=== PATIENT | female | born 1985 | race Caucasian/White ===

== ENCOUNTER 2017-04-04 13:25 | Emergency (ER) | payer BC, OTHER ==
[2017-04-04 15:02] VITALS: BP 135/78
--- NOTE | 2017-04-04 15:31 | UC ---
Abdominal Pain Female HPI - HPI Summary HPI Summary: Pt c/o sudden onset of abdominal discomfort and frequent soft stools. Pt reports that she traveled over the weekend ate "breakfast that did not taste good" and began with generalized abdominal discomfort, decreased appetite and frequent up to 7 X's per day , soft stools that have ranged in color from green to black. Pt denies nausea or vomiting, fever, chills or history of GI disease - History of Current Complaint Chief Complaint: UCGI Stated Complaint: STOMACH ACHE Time Seen by Provider: 04/04/17 15:14 Hx Obtained From: Patient Hx Last Menstrual Period: 03/22/17 ?: No Onset/Duration: Sudden Onset, Lasting Days, Still Present Timing: Constant Severity Initially: Mild Severity Currently: Mild Location: Diffuse, Discrete At: LUQ Radiates: No Character: Burning, Colicy, Dull, Sharp Aggravating Factor(s): Food, Movement Alleviating Factor(s): NPO Associated Signs and Symptoms: Positive: Decreased Appetite, Other: - frequent soft stools - Risk Factors Ectopic Risk Factor: Negative Ovarian Torsion Risk Factor: Negative Allergies/Adverse Reactions: Allergies Allergy/AdvReac Type Severity Reaction Status Date / Time No Known Allergies Allergy Verified 04/04/17 15:02 Home Medications: Home Medications Rizatriptan (NF) [Maxalt-Etl Architect (NF)] 5 mg PO DAILY 04/04/17 [History Confirmed ] Topiramate [Topamax 100 mg tab] 50 mg PO BID 04/04/17 [History Confirmed ] PMH/Surg Hx/FS Hx/Imm Hx Previously Healthy: Yes - Surgical History Surgical History: Yes Surgery Procedure, Year, and Place: Sinus surgery, left foot surgery - Family History Known Family History: Positive: None Negative: Cardiac Disease, Hypertension - Social History Occupation: Employed Full-time Lives: With Family Alcohol Use: None Substance Use Type: None Smoking Status (MU): Former Smoker Type: Cigarettes Amount Used/How Often: 1/2 PPD Length of Time of Smoking/Using Tobacco: 12 Years Have You Smoked in the Last Year: No When Did the Patient Quit Smoking/Using Tobacco: quit 01/2015 Household Exposure Type: Cigarettes - Immunization History Most Recent Influenza Vaccination: Not the Season Vaccination Up to Date: No Review of Systems Constitutional: Fatigue Skin: Negative Eyes: Negative ENT: Negative Respiratory: Negative Cardiovascular: Negative Gastrointestinal: Abdominal Pain, Other - frequent soft stools Genitourinary: Negative Motor: Negative Neurovascular: Negative Musculoskeletal: Negative Neurological: Negative Psychological: Negative Is Patient Immunocompromised?: No All Other Systems Reviewed And Are Negative: Yes Physical Exam Triage Information Reviewed: Yes Appearance: Ill-Appearing Vital Signs: Initial Vital Signs Temp 98.5 F 04/04/17 14:57 Pulse 76 04/04/17 14:57 Resp 16 04/04/17 14:57 BP 135/78 04/04/17 14:57 Pulse Ox 98 04/04/17 14:57 Vital Signs Reviewed: Yes Eye Exam: Normal ENT Exam: Normal Dental Exam: Normal Neck exam: Normal Respiratory Exam: Normal Cardiovascular Exam: Normal Abdominal Exam: Other Abdomen Description: Positive: Other: - tenderness LUQ, and epigastric Bowel Sounds: Positive: Present Musculoskeletal Exam: Normal Neurological Exam: Normal Psychological Exam: Normal Skin Exam: Normal Abd Pain Female Course/Dx - Course Course Of Treatment: I discussed with the pt the need to f/u with PCP - Differential Dx/Diagnosis Differential Diagnosis: Diverticulitis, Gall Bladder Disease, Irritable Bowel Syndrome Provider Diagnoses: abdominal pain. IBS? gastroenteritis? Diverticulitis? Food poisoning? Discharge - Discharge Plan Condition: Stable Disposition: HOME Patient Education Materials: Gas and Bloating (ED), Abdominal Pain (ED) Referrals: Dell MAYNARD,Antony Benjamin [Primary Care Provider] - If Needed Additional Instructions: Please follow up with your PCP as needed. Please use OTC immodium to manage your symptoms of loose frequent stools and follow the directions provided by the pharmacy technician inpatient. If symptoms do not improve please seek medical attention as soon as possible.
== END 2017-04-04 15:40 | disposition home or self-care (01) ==
LOC: UCCORT 13:25
DX: R10.9 Unspecified abdominal pain (principal); Z87.891 Personal history of nicotine dependence
CPT/HCPCS: 99211; G0463

== ENCOUNTER 2017-06-09 10:00 | Emergency (ER) | payer BC, OTHER ==
[2017-06-09 11:40] VITALS: BP 112/74
--- NOTE | 2017-06-09 12:20 | UC ---
Ear Complaint HPI - HPI Summary HPI Summary: 32 y/o female presents to the urgent care c/o RT ear pain and SRINIVASAN for the past 4 days. Pt reports she has Hx of Migraine SRINIVASAN and a herniated disc at C5-C6 that is been Tx by Neurologist DR Jayesh Bryson at [place]. She takes Topiramate and Rizotriptan and Tylenol for Migraines w/o any improvement of symptoms. SRINIVASAN is also on the Rt side of temporal and frontal area. Pain is 7/10 radiating to the cheek and neck. She also has a painful lymphnode in the RT side of neck. Pt had chills w/ nausea yesterday , but unaware of fever. Pt states she has a cold about 1 week ago and she still w/ mild runny nose and +PND. Pt denies dizziness , aura, decrease hearing, SOB, cough, chest pain abdominal pain, V/D - History of Current Complaint Chief Complaint: UCHeadache Stated Complaint: SRINIVASAN,EARS Time Seen by Provider: 06/09/17 12:01 Hx Obtained From: Patient Hx Last Menstrual Period: 03/22/17 Onset/Duration: Gradual Onset, Lasting Days - 4 days, Still Present, Worse Since - today Severity Initially: Mild Severity Currently: Moderate Pain Intensity: 7 Pain Scale Used: 0-10 Numeric Aggravating Factors: Other - Headache Alleviating Factors: OTC Meds Associated Signs/Symptoms: Positive: URI Symptoms. Negative: Hearing Loss, Foreign Body Sensation, Trauma to Ear, Swelling @ - Allergies/Home Medications Allergies/Adverse Reactions: Allergies Allergy/AdvReac Type Severity Reaction Status Date / Time No Known Allergies Allergy Verified 06/09/17 11:38 Home Medications: Home Medications Topiramate [Trokendi Xr] 100 mg PO DAILY 06/09/17 [History Confirmed 06/09/17] PMH/Surg Hx/FS Hx/Imm Hx Previously Healthy: Yes Neurological History: Migraine Other Neurological History: Herniated disc at C5-C6 - Surgical History Surgical History: Yes Surgery Procedure, Year, and Place: Sinus surgery, left foot surgery - Family History Known Family History: Positive: None - Pt denies FMHX Negative: Cardiac Disease, Hypertension - Social History Occupation: Employed Full-time Lives: With Family Alcohol Use: None Substance Use Type: None Smoking Status (MU): Former Smoker Type: Cigarettes Amount Used/How Often: 1/2 PPD Length of Time of Smoking/Using Tobacco: 12 Years Have You Smoked in the Last Year: No When Did the Patient Quit Smoking/Using Tobacco: quit 01/2015 Household Exposure Type: Cigarettes - Immunization History Most Recent Influenza Vaccination: Not the Season Vaccination Up to Date: No Review of Systems Constitutional: Negative Skin: Negative Eyes: Negative ENT: Ear Ache - Rt ear pain, Nasal Discharge - mild clear, Sinus Congestion Cardiovascular: Negative Gastrointestinal: Nausea Genitourinary: Negative Motor: Negative Neurovascular: Negative Musculoskeletal: Negative Neurological: Headache Psychological: Negative Is Patient Immunocompromised?: No All Other Systems Reviewed And Are Negative: Yes Physical Exam Triage Information Reviewed: Yes Vital Signs: Initial Vital Signs Temp 98.1 F 06/09/17 11:31 Pulse 79 06/09/17 11:31 Resp 14 06/09/17 11:31 BP 112/74 06/09/17 11:31 Pulse Ox 100 06/09/17 11:31 - Additional Comments Vital Signs Reviewed: Yes General: well developed, well nourished female sitting in the examining w/o any apparent distress. Eyes: Positive: Conjunctiva Clear - -Eyes: sclera and conjunctiva clear, corneas grossly clear, PEERLA, EOMI, no nystagmus, no ptosis,no photophobia, normal fundoscopic exam, normal visual barrera,, Other: - -Head:scalp atraumatic , NT, no trigger points ENT: Positive: Normal ENT inspection, Hearing grossly normal, Pharynx normal, RT external ear canals clear, RT TM injected w/ erythema and mild purulent discharge, LF external ear canal clear, LF TM WNL. No TMJ tenderness. Mild Nasal congestion, Nasal drainage clear, +PND, No Tonsillar enlargement or exudate Dental Exam: Normal Neck: Positive: Supple, Nontender, RT anterior cervical lymphadenopathy enalerge and tender on palpation Respiratory: Positive: Chest non-tender, Lungs clear, Normal breath sounds, No respiratory distress Cardiovascular: Positive: RRR, No Murmur, Pulses Normal, Brisk Capillary Refill Abdomen Description: Positive: Nontender, No Organomegaly, Soft. Negative: CVA Tenderness (R), CVA Tenderness (L) Bowel Sounds: Positive: Present Musculoskeletal: Positive: Strength Intact, ROM Intact, No Edema Neurological: Positive: Alert - A&OX3, CNII-XII WNL, speech, memory and expression WNL,, Muscle Tone Normal - Muscle strength 5/5 in both upper and lower extremities. Normal gait, negative Romberg test and good coordination finger to nose, heel to gilmore WNL, sensation intact. Reflexes WNL Psychological Exam: Normal Skin: Positive: warm and dry , no rashes or petechiae observed Ear Complaint Course/Dx - Course Course Of Treatment: 32 y/o female presents to the urgent care c/o RT ear pain and SRINIVASAN for the past 4 days. Pt reports she has Hx of Migraine SRINIVASAN and a herniated disc at C5-C6 that is been Tx by Neurologist DR Jayesh Bryson at [facility]. She takes Topiramate and Rizotriptan and Tylenol for Migraines w/o any improvement of symptoms. SRINIVASAN is also on the Rt side of temporal and frontal area. Pain is 7/10 radiating to the cheek and neck. She also has a painful lymphnode in the RT side of neck. Pt had chills w/ nausea yesterday , but unaware of fever. Pt states she has a cold about 1 week ago and she still w/ mild runny nose and +PND. Pt denies dizziness, aura, decrease hearing, SOB, cough, chest pain abdominal pain, V/D. Hx obtained. Pt w/ RT otitis Media on examination. Pt requested a RX fluconazole sicne every time she takes ABx she gets a yeast infectio. Pt Rx Amoxicillin PO, Naproxen PO, Zofran PO ans Fluconazole to alleviate symptoms. Strongly advised to f/u with her Neurologist for further management w/ her Migraine SRINIVASAN. Pt explained D/C instructions. Pt understood and agreed w/ plan of care. - Differential Dx/Diagnosis Differential Diagnosis/HQI/PQRI: Cerumen Impaction, Mastoiditis, Otitis Externa , Otitis Media, Pharyngitis, TMJ Syndrome, Trigeminal Nueralgia, Other - Migraine SRINIVASAN Provider Diagnoses: 1- RT otitis media. 2-Headache. 3-Nausea Discharge - Discharge Plan Condition: Stable Disposition: HOME Prescriptions: Amoxicillin PO (*) [Amoxicillin 500 MG CAP*] 500 mg PO Q12H #10 cap Fluconazole [Fluconazole 150 mg tab] 150 mg PO ONCE #1 tablet Naproxen [Naproxen 500 mg] 500 mg PO Q8H PRN #30 tab PRN Reason: Headache Ondansetron ODT TAB* [Zofran 4 MG Odt TAB*] 4 mg PO Q6H PRN #12 tab.odt PRN Reason: Nausea Patient Education Materials: Ear Infection (ED), Acute Headache (ED) Forms: *Work Release Referrals: [facility] [place] [facility] [Outside] - 3 Days Additional Instructions: 1- Please take the full course of the antibiotic to avoid resistance. 2-Please take Naproxen PO as instructed after meals to alleviate otalgia and SRINIVASAN. Increase fluid intake, eat well, rest and avoid strenuous exercise 3-Take Zofran Po as directed only if you continue w/ the nausea or you develop vomiting. If you develop a yeast infection at the end of amoxicillin treatment please take the Fluconazole as directed. Do not take the Zofran PO due to interaction 4-If symptoms do not improve or worsen please return to the urgent care or f/u with your PCP for further evaluation and treatment.
== END 2017-06-09 12:30 | disposition home or self-care (01) ==
LOC: UCCORT 10:00
DX: Z87.891 Personal history of nicotine dependence (principal); H66.91 Otitis media, unspecified, right ear; R51 Headache; R11.0 Nausea
CPT/HCPCS: 99212; G0463

== ENCOUNTER 2017-10-16 07:01 | Emergency (ER) | payer BC ==
[2017-10-16 07:19] VITALS: BP 123/78
--- NOTE | 2017-10-16 08:01 | UC ---
Throat Pain/Nasal Eric HPI - HPI Summary HPI Summary: Sinus pain and pressure x 7 days bilateral ear pain, nasal congestion , pnd, no cough , no fever, no chills - History of Current Complaint Chief Complaint: UCGeneralIllness Stated Complaint: BILATERAL EAR/MOUTH COMPLAINT Time Seen by Provider: 10/16/17 07:24 Hx Obtained From: Patient Hx Last Menstrual Period: Nuvaring at all times ?: No Onset/Duration: Gradual Onset, Lasting Days - 7, Still Present Severity: Moderate Pain Intensity: 4 Pain Scale Used: 0-10 Numeric Cough: None Associated Signs & Symptoms: Positive: Sinus Discomfort, Nasal Discharge. Negative: Dysphagia, FB Sensation, Drooling, Wheezing, Hoarseness, Fever, Vomiting, Rash - Allergies/Home Medications Allergies/Adverse Reactions: Allergies Allergy/AdvReac Type Severity Reaction Status Date / Time No Known Allergies Allergy Verified 10/16/17 07:19 PMH/Surg Hx/FS Hx/Imm Hx Previously Healthy: Yes - Surgical History Surgical History: Yes Surgery Procedure, Year, and Place: Sinus surgery, left foot surgery - Family History Known Family History: Positive: None - Pt denies FMHX Negative: Cardiac Disease, Hypertension - Social History Alcohol Use: None Substance Use Type: None Smoking Status (MU): Former Smoker Type: Cigarettes Amount Used/How Often: 1/2 PPD Length of Time of Smoking/Using Tobacco: 12 Years Have You Smoked in the Last Year: No When Did the Patient Quit Smoking/Using Tobacco: quit 01/2015 Household Exposure Type: Cigarettes - Immunization History Most Recent Influenza Vaccination: Not the Season Vaccination Up to Date: No Review of Systems Constitutional: Negative Skin: Negative Eyes: Negative ENT: Ear Ache, Nasal Discharge, Sinus Congestion, Sinus Pain/Tenderness Respiratory: Negative Cardiovascular: Negative Gastrointestinal: Negative Is Patient Immunocompromised?: No All Other Systems Reviewed And Are Negative: Yes Physical Exam Triage Information Reviewed: Yes Appearance: Well-Appearing, No Pain Distress, Well-Nourished Vital Signs: Initial Vital Signs Temp 97.6 F 10/16/17 07:12 Pulse 80 10/16/17 07:12 Resp 16 10/16/17 07:12 BP 123/78 10/16/17 07:12 Pulse Ox 100 10/16/17 07:12 Vital Signs Reviewed: Yes Eye Exam: Normal Eyes: Positive: Conjunctiva Clear ENT: Positive: Normal ENT inspection, Hearing grossly normal, Pharyngeal erythema, Nasal drainage, TMs normal, TM bulging, Sinus tenderness. Negative: TM dull, TM red, Tonsillar swelling, Tonsillar exudate Neck: Positive: Supple, Nontender, No Lymphadenopathy Respiratory: Positive: Chest non-tender, Lungs clear, Normal breath sounds Cardiovascular: Positive: RRR, No Murmur, Pulses Normal Skin Exam: Normal Throat Pain/Nasal Course/Dx - Differential Dx/Diagnosis Provider Diagnoses: Sinusitis Discharge - Sign-Out/Discharge Documenting (check all that apply): Discharge/Admit/Transfer - Discharge Plan Condition: Stable Disposition: HOME Prescriptions: Amoxicillin/Clavulanate TAB* [Augmentin TAB 875*] 875 mg PO BID #20 tab Fluconazole [Diflucan 150 MG (NF)] 150 mg PO ONCE #1 tab Patient Education Materials: Sinusitis (ED) Referrals: Antony Gray [Primary Care Provider] - If Needed - Billing Disposition and Condition Condition: STABLE Disposition: Home
== END 2017-10-16 07:33 | disposition home or self-care (01) ==
LOC: UCCORT 07:01
DX: J32.9 Chronic sinusitis, unspecified (principal); Z87.891 Personal history of nicotine dependence
CPT/HCPCS: 99212; G0463

== ENCOUNTER 2018-05-25 14:09 | Emergency (ER) | payer BC ==
[2018-05-25 14:54] VITALS: BP 109/74
--- NOTE | 2018-05-25 15:01 | UC ---
Throat Pain/Nasal Eric HPI - HPI Summary HPI Summary: Pt presents with c/o sudden onset of nasal congestion chills body aches x 6 days. Pt states that she think she has a sinus infection. - History of Current Complaint Chief Complaint: UCRespiratory Stated Complaint: ST,SINUS COMPLAINT Time Seen by Provider: 05/25/18 14:51 Hx Obtained From: Patient Hx Last Menstrual Period: Nuvaring at all times ?: No Onset/Duration: Sudden Onset, Lasting Days, Still Present Severity: Moderate Pain Intensity: 5 Cough: None Associated Signs & Symptoms: Positive: Sinus Discomfort - Epiglottits Risk Factors Epiglottis Risk Factors: Negative - Allergies/Home Medications Allergies/Adverse Reactions: Allergies Allergy/AdvReac Type Severity Reaction Status Date / Time No Known Allergies Allergy Verified 05/25/18 14:49 Home Medications: Home Medications Guaifenesin/Dextromethorphan [Mucinex Dm ER 1,200-60 mg Tab] 1 tab PO Q12H PRN 05/25/18 [History Confirmed 05/25/18] Rizatriptan ODT (NF) [Maxalt-CAFETERIA TABLE ATTENDANT (NF)] 10 mg PO SEE INSTRUCTIONS PRN 05/25/18 [ History Confirmed 05/25/18] Topiramate TAB(*) [Topamax 100 mg tab] 200 mg PO BEDTIME 05/25/18 [History Confirmed 05/25/18] Zolpidem CR (NF) [Ambien CR (NF)] 12.5 mg PO BEDTIME 05/25/18 [History Confirmed 05/25/18] diPHENhydraMINE PO* [Benadryl PO 25 MG TAB*] 50 mg PO Q6H PRN 05/25/18 [History Confirmed 05/25/18] PMH/Surg Hx/FS Hx/Imm Hx Previously Healthy: Yes - Surgical History Surgical History: Yes Surgery Procedure, Year, and Place: Sinus surgery, left foot surgery - Family History Known Family History: Positive: None - Pt denies FMHX Negative: Cardiac Disease, Hypertension - Social History Occupation: Employed Full-time Lives: With Family Alcohol Use: None Substance Use Type: None Smoking Status (MU): Former Smoker Type: Cigarettes Amount Used/How Often: 1/2 PPD Length of Time of Smoking/Using Tobacco: 12 Years Have You Smoked in the Last Year: No When Did the Patient Quit Smoking/Using Tobacco: quit 01/2015 Household Exposure Type: Cigarettes - Immunization History Most Recent Influenza Vaccination: Not the Season Vaccination Up to Date: No Review of Systems All Other Systems Reviewed And Are Negative: Yes Constitutional: Positive: Chills Skin: Positive: Negative Eyes: Positive: Negative ENT: Positive: Sore Throat, Sinus Congestion, Sinus Pain/Tenderness Respiratory: Positive: Negative Cardiovascular: Positive: Negative Gastrointestinal: Positive: Negative Genitourinary: Positive: Negative Motor: Positive: Negative Neurovascular: Positive: Negative Musculoskeletal: Positive: Negative Neurological: Positive: Headache Psychological: Positive: Negative Is Patient Immunocompromised?: No Physical Exam Triage Information Reviewed: Yes Appearance: Ill-Appearing Vital Signs: Initial Vital Signs Temp 97.4 F 05/25/18 14:48 Pulse 82 05/25/18 14:48 Resp 16 05/25/18 14:48 BP 109/74 05/25/18 14:48 Pulse Ox 100 05/25/18 14:48 Vital Signs Reviewed: Yes Eye Exam: Normal ENT: Positive: Nasal congestion, Sinus tenderness Dental Exam: Normal Neck exam: Normal Respiratory Exam: Normal Cardiovascular Exam: Normal Musculoskeletal Exam: Normal Neurological Exam: Normal Psychological Exam: Normal Skin Exam: Normal Throat Pain/Nasal Course/Dx - Differential Dx/Diagnosis Differential Diagnosis/HQI/PQRI: Influenza, Sinusitis, URI Provider Diagnosis: Sinusitis Discharge - Sign-Out/Discharge Documenting (check all that apply): Patient Departure All imaging exams completed and their final reports reviewed: No Studies - Discharge Plan Condition: Stable Disposition: HOME Prescriptions: Amoxicillin/Clavulanate TAB* [Augmentin TAB 875*] 875 mg PO Q12H #20 tab Fluconazole 150 MG TAB* [Diflucan 150 MG TAB*] 150 mg PO ONCE #2 tablet Patient Education Materials: Sinusitis (ED) Referrals: Antony Gray [Primary Care Provider] - If Needed - Billing Disposition and Condition Condition: STABLE Disposition: Home
== END 2018-05-25 15:05 | disposition home or self-care (01) ==
LOC: UCCORT 14:09
DX: J32.9 Chronic sinusitis, unspecified (principal); Z98.890 Other specified postprocedural states; Z87.891 Personal history of nicotine dependence
CPT/HCPCS: 99212; G0463

== ENCOUNTER 2019-06-09 10:15 | Emergency (ER) | payer BC ==
[2019-06-09 11:01] VITALS: BP 107/66
--- NOTE | 2019-06-09 11:14 | UC ---
Throat Pain/Nasal Eric HPI - HPI Summary HPI Summary: 34-year-old woman comes in with a chief complaint of sinusitis symptoms for 5 days. She has frontal sinus pressure yellow and green rhinorrhea and postnasal drip. Also been having some cough. Has been taking Mucinex DM and also a decongestant. Overall she is not improving. Also does have a sore throat it's worse with swallowing. - History of Current Complaint Chief Complaint: UCRespiratory Stated Complaint: SINUS PRESSURE, SORE THROAT, CONGESTION Time Seen by Provider: 06/09/19 10:52 Hx Last Menstrual Period: Nuvaring at all times Pain Intensity: 5 - Allergies/Home Medications Allergies/Adverse Reactions: Allergies Allergy/AdvReac Type Severity Reaction Status Date / Time No Known Allergies Allergy Verified 05/22/19 11:14 Home Medications: Home Medications Guaifenesin/Dextromethorphan [Mucinex Dm ER 600-30 mg Tablet] PRN 06/09/19 [ History] Ibuprofen/Pseudoephedrine HCl [Advil Cold & Sinus] 1 tab PO Q4H PRN 06/09/19 [ History Confirmed 06/09/19] Meloxicam 7.5 mg PO DAILY 06/09/19 [History Confirmed 06/09/19] diPHENhydraMINE PO* [Benadryl PO 25 MG TAB*] 25 mg PO Q4H PRN 06/09/19 [History Confirmed 06/09/19] PMH/Surg Hx/FS Hx/Imm Hx Previously Healthy: Yes - Surgical History Surgical History: Yes Surgery Procedure, Year, and Place: Sinus surgery, left foot surgery, HYSTERECTOMY - Family History Known Family History: Positive: None - Pt denies FMHX Negative: Cardiac Disease, Hypertension - Social History Alcohol Use: None Substance Use Type: None Smoking Status (MU): Former Smoker Type: Cigarettes Amount Used/How Often: 1/2 PPD Length of Time of Smoking/Using Tobacco: 12 Years Have You Smoked in the Last Year: No When Did the Patient Quit Smoking/Using Tobacco: quit 01/2015 Household Exposure Type: Cigarettes - Immunization History Most Recent Influenza Vaccination: Not the Season Vaccination Up to Date: No Review of Systems All Other Systems Reviewed And Are Negative: Yes Constitutional: Positive: Other - see hpi Skin: Positive: Negative Eyes: Positive: Negative ENT: Positive: Sore Throat, Ear Ache, Nasal Discharge, Sinus Congestion, Sinus Pain/Tenderness Respiratory: Positive: Cough Cardiovascular: Positive: Negative Gastrointestinal: Positive: Negative Genitourinary: Positive: Negative Motor: Positive: Negative Neurovascular: Positive: Negative Musculoskeletal: Positive: Negative Neurological/Mental Status: Positive: Negative Psychological: Positive: Negative Is Patient Immunocompromised?: No Physical Exam Triage Information Reviewed: Yes Appearance: No Pain Distress, Well-Nourished, Ill-Appearing - mild Vital Signs: Initial Vital Signs Temp 98.1 F 06/09/19 10:55 Pulse 77 06/09/19 10:55 Resp 15 06/09/19 10:55 BP 107/66 06/09/19 10:55 Pulse Ox 100 06/09/19 10:55 Vital Signs Reviewed: Yes Eye Exam: Normal Eyes: Positive: Conjunctiva Clear ENT: Positive: Pharyngeal erythema, Nasal congestion, Nasal drainage, TMs normal Neck: Positive: Supple Respiratory: Positive: Lungs clear, Normal breath sounds, No respiratory distress Cardiovascular: Positive: RRR Musculoskeletal: Positive: Strength Intact, ROM Intact Neurological: Positive: Alert, Muscle Tone Normal Psychological: Positive: Age Appropriate Behavior Skin Exam: Normal Throat Pain/Nasal Course/Dx - Course Course Of Treatment: DISCUSSED VIRAL VERSES BACTERIAL INFECTIONS AND THE ROLE OF ANTIBIOTICS. THE PATIENT PREFERS TO BE ON ANTIBIOTICS AT THIS TIME. - Differential Dx/Diagnosis Provider Diagnosis: Sinusitis Discharge ED - Sign-Out/Discharge Documenting (check all that apply): Patient Departure All imaging exams completed and their final reports reviewed: No Studies - Discharge Plan Condition: Stable Disposition: HOME Prescriptions: Amoxicillin PO (*) [Amoxicillin 875 MG (*)] 875 mg PO BID #20 tab Fluconazole 150 MG TAB* [Diflucan 150 MG TAB*] 150 mg PO ONCE #2 tablet Fluticasone NASAL SPRAY 50MCG* [Flonase NASAL SPRAY 50MCG*] 2 spray BOTH NARES DAILY #1 btl Patient Education Materials: Sinusitis (ED) Referrals: Antony Sharpe PA [Primary Care Provider] - Additional Instructions: FOLLOW UP WITH YOUR DOCTOR IF NOT COMPLETELY IMPROVED. Maintain good fluid intake. Stop taking any decongestants such as Sudafed. Can also stop taking Benadryl at this time. GET REEVALUATED SOONER IF NOT IMPROVED OR WORSE OR ANY QUESTIONS OR CONCERNS. - Billing Disposition and Condition Condition: STABLE Disposition: Home
== END 2019-06-09 11:19 | disposition home or self-care (01) ==
LOC: UCCORT 10:15
DX: J32.9 Chronic sinusitis, unspecified (principal); H92.09 Otalgia, unspecified ear; Z87.891 Personal history of nicotine dependence
CPT/HCPCS: 99212; G0463